=== PATIENT | male | born 1960 | race Caucasian/White ===

== ENCOUNTER → 2016-09-24 | Outpatient (CLI) | payer MEDICARE ==
[~2016-09-24] MED LIST: ASA CHILDREN'S81 MG PO; CENTRUM SILVER1 EAC1 PO; GLUCOPHAGE XR500 MG PO; IMDUR DPS60 MG PO; LIPITOR DPS40 MG PO; LOPRESSOR DPS12.5 MG PO; NORVASC5 MG PO; PLAVIX75 MG PO; ULTRAM DPS50 MG PO
== END | disposition home or self-care (01) ==
LOC: RESC 08:06
DX: R06.2 Wheezing (principal); R06.00 Dyspnea, unspecified